=== PATIENT | male | born 1965 | race Caucasian/White ===

== ENCOUNTER 2017-05-04 08:58 | Emergency (ER) | payer MEDICARE ==
[~2017-05-04] VITALS: Ht 185.4 cm; Wt 108.9 kg
== END 2017-05-04 10:18 | disposition home or self-care (01) ==
LOC: ED 08:58
DX: R21 Rash and other nonspecific skin eruption (principal); M54.5 Low back pain; F41.9 Anxiety disorder, unspecified; F17.200 Nicotine dependence, unspecified, uncomplicated